=== PATIENT | female | born 1990 | race Caucasian/White ===

== ENCOUNTER 2023-05-16 11:06 | Inpatient (IN) | payer OTHER ==
[~2023-05-16] VITALS: Ht 167.6 cm; Wt 59.9 kg
[2023-05-16] MEDS ORDERED: MULT9LIQ6 PO (12:03)
[2023-05-16] MEDS ORDERED: ACET-2070 PO (12:03)
[2023-05-16] MEDS ORDERED: FERR220E2 PO (12:03)
[2023-05-16] MEDS ORDERED: CRAN400T3 PO (12:03)
[2023-05-16] MEDS ORDERED: NA P133E RC (12:03)
[2023-05-16] MEDS ORDERED: MAGN400O6 PO (12:03)
[2023-05-16] MEDS ORDERED: LACT250L14 PO (12:03)
[2023-05-16] MEDS ORDERED: PANT40SU2 PO (12:03)
[2023-05-16] MEDS ORDERED: DOCU100T2 PO (12:03)
[2023-05-16] MEDS ORDERED: CHLO473M5 MM (12:03)
[2023-05-16] MEDS ORDERED: CALC-494 PO (12:03)
[2023-05-16] MEDS ORDERED: LEVE100S PO (12:03)
[2023-05-16] MEDS ORDERED: ALBU8.5H8 IH (12:03)
[2023-05-16] MEDS ORDERED: ACET-2605 PO (12:03)
[2023-05-16 12:06] LABS: BASOPHILS % (AUTO) 0.6 % (0.0-2.0); EOSINOPHILS # (AUTO) 0.2 K/uL (0.0-0.7); EOSINOPHILS % (AUTO) 2.5 % (0.0-6.0); HEMATOCRIT 39 % (33-45); HEMOGLOBIN 13.1 g/dL (11.5-14.8); LYMPHOCYTES # (AUTO) 1.3 K/uL (0.8-4.8); LYMPHOCYTES % (AUTO) 21.3 % (20.0-44.0); MEAN CORPUSCULAR HEMOGLOBIN 31 PG (26.0-33.0); MEAN CORPUSCULAR HGB CONC 33 g/dl (31.0-36.0); MEAN CORPUSCULAR VOLUME 93 fL (82-100); MONOCYTES # (AUTO) 0.4 K/uL (0.1-1.30); MONOCYTES % (AUTO) 6.7 % (2.0-12.0); NEUTROPHILS # (AUTO) 4.3 K/uL (1.8-8.9); NEUTROPHILS % (AUTO) 68.9 % (43.0-81.0); PLATELET COUNT (AUTO) 235 K/uL (150-450); RED BLOOD CELL COUNT(AUTO) 4.23 MIL/uL (4.0-5.2); RED CELL DISTRIBUTION WIDTH 12.9 % (11.5-15.0); WHITE BLOOD COUNT (AUTO) 6.2 K/uL (4.3-11.0)
[2023-05-16 12:23] LABS: CALCIUM, SERUM 9.3 mg/dL (8.5-10.1); CREATININE 0.6 mg/dL (0.6-1.3); POTASSIUM 3.5 mmol/L (3.5-5.1)
[2023-05-16] MEDS ORDERED: ONDANSETRON HCL/PF 4 MG/2 ML VIAL IVP PRN (14:00)
[2023-05-16] MEDS ORDERED: MAG HYDROX/AL HYDROX/SIMETH 30 ML UDC PO PRN (14:00)
[2023-05-16] MEDS ORDERED: MAGNESIUM HYDROXIDE 30 ML UDC PO PRN (14:00)
[2023-05-16] MEDS ORDERED: Z GUARD REMEDY 4 OZ OINT TP PRN (14:00)
[2023-05-16] MEDS ORDERED: ACETAMINOPHEN 325 MG TABLET PO PRN (14:00)
[2023-05-16 16:17] VITALS: BP 99/68; TEMP 98.1; O2SAT 98
[2023-05-16] MEDS: ENOXAPARIN SODIUM 40 MG/0.4 ML DISP.SYRIN SQ SCH (16:25)
[2023-05-16 20:00] VITALS: BP_SYST 105; BP_SYST 114; BP_DIAS 70; BP_DIAS 75; TEMP 97.7; TEMP 98.2; O2SAT 95; O2SAT 96
[2023-05-17 08:00] VITALS: BP 102/76; TEMP 98.1; O2SAT 98
[2023-05-17] MEDS ORDERED: PANTOPRAZOLE 40 MG VIAL IV SCH (09:00)
[2023-05-17 09:11] LABS: BASOPHILS % (AUTO) 0.6 % (0.0-2.0); EOSINOPHILS # (AUTO) 0.1 K/uL (0.0-0.7); EOSINOPHILS % (AUTO) 2.1 % (0.0-6.0); HEMATOCRIT 42 % (33-45); HEMOGLOBIN 14.1 g/dL (11.5-14.8); LYMPHOCYTES # (AUTO) 1.1 K/uL (0.8-4.8); LYMPHOCYTES % (AUTO) 21.4 % (20.0-44.0); MEAN CORPUSCULAR HEMOGLOBIN 31 PG (26.0-33.0); MEAN CORPUSCULAR HGB CONC 33 g/dl (31.0-36.0); MEAN CORPUSCULAR VOLUME 92 fL (82-100); MONOCYTES # (AUTO) 0.3 K/uL (0.1-1.30); MONOCYTES % (AUTO) 6.3 % (2.0-12.0); NEUTROPHILS # (AUTO) 3.6 K/uL (1.8-8.9); NEUTROPHILS % (AUTO) 69.6 % (43.0-81.0); PLATELET COUNT (AUTO) 250 K/uL (150-450); RED BLOOD CELL COUNT(AUTO) 4.58 MIL/uL (4.0-5.2); RED CELL DISTRIBUTION WIDTH 12.9 % (11.5-15.0); WHITE BLOOD COUNT (AUTO) 5.2 K/uL (4.3-11.0)
[2023-05-17 09:23] LABS: CALCIUM, SERUM 9.4 mg/dL (8.5-10.1); CREATININE 0.6 mg/dL (0.6-1.3); MAGNESIUM 2.1 mg/dL (1.8-2.4); PHOSPHORUS 3.7 mg/dL (2.5-4.9); POTASSIUM 3.8 mmol/L (3.5-5.1)
[2023-05-17] MEDS: ENOXAPARIN SODIUM 40 MG/0.4 ML DISP.SYRIN SQ SCH (13:49)
[2023-05-17 16:00] VITALS: BP 104/85; TEMP 97.5; O2SAT 94
[2023-05-17 19:37] LABS: PREGNANCY TEST URINE QUAL NEGATIVE (NEGATIVE)
[2023-05-17 20:00] VITALS: BP 104/68; TEMP 98.2; O2SAT 99
[2023-05-18 08:00] VITALS: BP 101/76; TEMP 98.4; O2SAT 98
[2023-05-18] MEDS: PANTOPRAZOLE 40 MG/PACK PACK PO SCH (09:00)
[2023-05-18] MEDS: ENOXAPARIN SODIUM 40 MG/0.4 ML DISP.SYRIN SQ SCH (14:36)
[2023-05-18 15:43] VITALS: BP 99/72; TEMP 98.6; O2SAT 99
[2023-05-18 20:00] VITALS: BP 99/71; TEMP 97.3; O2SAT 98
[2023-05-19 08:00] VITALS: BP 98/72; TEMP 97.3; O2SAT 98
[2023-05-19] MEDS: PANTOPRAZOLE 40 MG/PACK PACK PO SCH (10:08)
[2023-05-19] MEDS: ENOXAPARIN SODIUM 40 MG/0.4 ML DISP.SYRIN SQ SCH (14:00)
[2023-05-19 15:40] VITALS: BP 124/77; TEMP 98.6; O2SAT 100
== END 2023-05-19 16:30 | DRG 254 ==
LOC: ER 11:22 → MED 13:37
PROVIDERS: ADMIT Nurse Practitioner Acute Care
PROC: 0DP6XUZ Removal of Feeding Device from Stomach, External Approach (ICD-10-PCS; principal; 2023-05-19)
DX: Z43.1 Encounter for attention to gastrostomy (principal); G93.49 Other encephalopathy; K31.6 Fistula of stomach and duodenum; D68.69 Other thrombophilia; Z74.09 Other reduced mobility; K21.9 Gastro-esophageal reflux disease without esophagitis; R13.10 Dysphagia, unspecified; Z74.01 Bed confinement status; Z87.820 Personal history of traumatic brain injury; Z91.81 History of falling; R53.1 Weakness
CPT/HCPCS: 36415; 80048-TC; 83735-TC; 84100-TC; 84703-TC; 85025-TC; 92526; 92611-TC; 97110-TC; 97116-TC; 97530-TC; C9113; G0378; J1650